=== PATIENT | female | born 1990 | race Caucasian/White ===

== ENCOUNTER 2017-10-13 09:13 | Emergency (ER) | payer MEDICAID ==
[~2017-10-13] VITALS: Ht 172.7 cm; Wt 100.2 kg
[2017-10-13] MEDS ORDERED: IBUPROFEN 400MG TABLET PO ONE (11:30)
[2017-10-13 11:39] LABS: BASOPHILS % 0.3 % (0.0-2.0); EOSINOPHILS % 0.3 % (0.0-5.0); HEMATOCRIT. 42.7 % (36.0-48.0); HEMOGLOBIN. 14.5 g/dL (12.0-16.0); LYMPHOCYTES % 13.2 % (20.0-50.0); MEAN CORPUSCULAR HEMOGLOBIN 30.8 pg (28.0-32.0); MEAN CORPUSCULAR VOLUME 90.7 fL (81.0-99.0); MEAN PLATELET VOLUME 9.8 fl (7.4-10.4); MONOCYTES % 6.2 % (2.0-8.0); PLATELET 205 x1000/uL (130-400); RED BLOOD CELL COUNT 4.71 mill/uL (4.2-5.4); RED CELL DISTRIBUTION WIDTH 13.6 % (11.6-14.6)
[2017-10-13 11:47] LABS: CLARITY URINE CLEAR (CLEAR); COLOR URINE YELLOW (YELLOW); KETONES URINE NEGATIVE (NEGATIVE); LEUKOCYTE ESTERASE URINE NEGATIVE (NEGATIVE); NITRITE URINE NEGATIVE (NEGATIVE); OCCULT BLOOD URINE NEGATIVE (NEGATIVE); PH URINE 5.5 (4.5-8.0); PROTEIN URINE NEGATIVE (NEGATIVE); SPECIFIC GRAVITY URINE 1.018 (1.005-1.030)
[2017-10-13 11:47] LABS: CHLORIDE 105 mEq/L (98-107)
[2017-10-13] MEDS ORDERED: HYDROCODONE/ACETAMINOPHEN 10/325MG TABLET PO ONE (12:15)
[2017-10-13 14:40] VITALS: BP 122/63
== END 2017-10-13 14:44 | disposition left against medical advice (07) ==
LOC: ER 10:30
DX: K80.70 Calculus of gallbladder and bile duct without cholecystitis without obstruction (principal); R07.81 Pleurodynia; F17.200 Nicotine dependence, unspecified, uncomplicated
CPT/HCPCS: 36415; 71110; 76705; 80053; 81003; 81025; 83690; 85025; 99285